=== PATIENT | female | born 1970 | race Caucasian/White ===

== ENCOUNTER 2017-03-03 06:07 | Emergency (ER) | payer OTHER ==
[~2017-03-03] VITALS: Ht 160 cm; Wt 75.1 kg
[~2017-03-03 06:07] MED LIST: BIRTH CONTROL MED
[2017-03-03] MEDS ORDERED: ZANTAC150 MG PO (06:20)
[2017-03-03] MEDS ORDERED: ALLEGRA60 MG PO (06:21)
[2017-03-03 06:30] LABS: ADD MIUA? NO; BILIRUBIN NEGATIVE; BLOOD NEGATIVE; COLOR YELLOW ((YELLOW)); GLUCOSE (STRIP) NEGATIVE; KETONES NEGATIVE; LEUKOCYTES NEGATIVE; NITRITE NEGATIVE; PROTEIN (STRIP) 30; SPECIFIC GRAVITY 1.018 (1.000-1.030); UCUL ADDED? NO; UROBILINOGEN 0.2 MG/DL (0.2-1.0)
[2017-03-03 06:40] LABS: MCH 32.6 PG (29.0-34.0); MCHC 34.7 G/DL (30.0-36.0); MCV 93.8 FL (83-99); MEAN PLAT.VOLUME 10.7 uM^3 (9.5-12.4); PLATELET COUNT 194 K/uL (156-360); RBC DIS.WIDTH-CV 12.1 % (11.8-14.6); RBC DIS.WIDTH-SD 41.9 % (39-53); RED BLOOD COUNT 4.05 M/uL (3.80-5.20); WHITE BLOOD COUNT 8.5 K/uL (4.1-10.2)
[2017-03-03 06:55] LABS: CHLORIDE 104 mEq/L (99-109); POTASSIUM 3.6 mEq/L (3.7-5.4); SODIUM 139 mEq/L (136-147)
[2017-03-03 06:58] LABS: GLUCOSE 102 mg/dL (70-99)
[2017-03-03 06:59] LABS: ANION GAP 13 MEQ/L (2-14)
[2017-03-03 07:00] LABS: TOTAL BILIRUBIN 0.4 mg/dL (0.0-1.0)
[2017-03-03 07:01] LABS: ALKALINE PHOSPHATASE 100 IU/L (3-129); GFR ESTIMATE (CALCULATED) > 59 mL/min/
[2017-03-03 07:02] LABS: UREA NITROGEN (BUN) 12 mg/dL (9-23)
[2017-03-03 07:05] LABS: LIPASE 12 U/L (1.0-51.0)
[2017-03-03 07:10] LABS: QUANTITATIVE HCG < 4.0 MIU/ML
[2017-03-03] MEDS ORDERED: ZOFRAN ODT4 MG PO (07:45)
[2017-03-03 08:39] VITALS: BP 115/76
== END 2017-03-03 08:39 | disposition home or self-care (01) ==
LOC: EME 06:07
DX: K52.9 Noninfective gastroenteritis and colitis, unspecified (principal); Z87.891 Personal history of nicotine dependence
CPT/HCPCS: 80053; 81003; 83690; 84702; 85027; 99281; 99284; J7120

== ENCOUNTER 2017-04-28 22:01 | Inpatient (IN) | payer OTHER ==
[~2017-04-28] VITALS: Ht 160 cm; Wt 77.3 kg
[~2017-04-28 22:01] MED LIST changes: +ALLEGRA60 MG PO; +ZANTAC150 MG PO; +ZOFRAN ODT4 MG PO
[2017-04-28 22:38] LABS: ADD MIUA? YES; BILIRUBIN NEGATIVE; BLOOD NEGATIVE; COLOR YELLOW ((YELLOW)); GLUCOSE (STRIP) NEGATIVE; KETONES NEGATIVE; LEUKOCYTES TRACE; NITRITE NEGATIVE; PROTEIN (STRIP) NEGATIVE; SPECIFIC GRAVITY 1.012 (1.000-1.030); UROBILINOGEN 0.2 MG/DL (0.2-1.0)
[2017-04-28 22:53] LABS: BACTERIA 1+ /HPF; EPITHELIAL CELLS 2+ /HPF; MUCUS TRACE /LPF; RED BLOOD CELLS 0-5 /HPF (0-5); UCUL ADDED? NO; WHITE BLOOD CELLS 0-5 /HPF (0-5)
[2017-04-28 22:57] LABS: HEMATOCRIT 38.2 % (36.0-46.0); MCH 32.8 PG (29.0-34.0); MCV 96.5 FL (83-99); MEAN PLAT.VOLUME 10.5 uM^3 (9.5-12.4); PLATELET COUNT 226 K/uL (156-360); RBC DIS.WIDTH-SD 42.8 % (39-53); RED BLOOD COUNT 3.96 M/uL (3.80-5.20); WHITE BLOOD COUNT 10.3 K/uL (4.1-10.2)
[2017-04-28 23:08] LABS: CHLORIDE 106 mEq/L (99-109); POTASSIUM 3.5 mEq/L (3.7-5.4); SODIUM 139 mEq/L (136-147)
[2017-04-28 23:10] LABS: GLUCOSE 118 mg/dL (70-99)
[2017-04-28 23:11] LABS: ANION GAP 13 MEQ/L (2-14)
[2017-04-28 23:12] LABS: TOTAL BILIRUBIN 0.7 mg/dL (0.0-1.0)
[2017-04-28 23:13] LABS: ALKALINE PHOSPHATASE 92 IU/L (3-129)
[2017-04-28 23:14] LABS: GFR ESTIMATE (CALCULATED) > 59 mL/min/
[2017-04-28 23:15] LABS: UREA NITROGEN (BUN) 9 mg/dL (9-23)
[2017-04-28 23:22] LABS: QUANTITATIVE HCG < 4.0 MIU/ML
[2017-04-29 00:51] LABS: LIPASE 8 U/L (1.0-51.0)
[2017-04-29] MEDS ORDERED: OMEPRAZOLE40 M1 PO (06:13)
[2017-04-29 07:45] VITALS: BP 114/56
[2017-04-29 07:58] LABS: TROP-I INTERPRETATION NEGATIVE; TROPONIN-I 0.01 ng/mL (0.0-0.30)
[2017-04-29 12:36] VITALS: BP 105/54
[2017-04-29 13:17] LABS: EOSINOPHIL (%) 0.8 % (0-5); EOSINOPHIL COUNT 0.1 K/uL (0-0.3); HEMATOCRIT 35.9 % (36.0-46.0); IMMATURE GRANULOCYTE (%) 0.3 % (0.0-0.7); INSTRUMENT ABS NEUTROPHIL CT 5.7 K/uL; LYMPHOCYTE COUNT 1.6 K/uL (1.0-2.8); MCH 32.6 PG (29.0-34.0); MCHC 33.4 G/DL (30.0-36.0); MCV 97.6 FL (83-99); MEAN PLAT.VOLUME 10.9 uM^3 (9.5-12.4); MONOCYTE (%) 7.8 % (3-12); MONOCYTE COUNT 0.6 K/uL (0-0.8); NEUTROPHIL (%) 70.7 % (45-76); NEUTROPHIL COUNT 5.7 K/uL (1.8-6.4); PLATELET COUNT 186 K/uL (156-360); RBC DIS.WIDTH-CV 12.2 % (11.8-14.6); RBC DIS.WIDTH-SD 44.3 % (39-53); RED BLOOD COUNT 3.68 M/uL (3.80-5.20)
[2017-04-29 13:41] LABS: ANION GAP 7 MEQ/L (2-14); CHLORIDE 107 MEQ/L (99-109); GFR ESTIMATE (CALCULATED) > 59 mL/min/; GLUCOSE 103 mg/dL (70-99); POTASSIUM 3.7 MEQ/L (3.7-5.4); SAMPLE HEMOLYSIS CHECK 0; SAMPLE ICTERIC CHECK 0; SAMPLE LIPEMIA CHECK 0; SODIUM 139 MEQ/L (136-147); UREA NITROGEN (BUN) 8 mg/dL (9-23)
[2017-04-29 13:52] LABS: TROP-I INTERPRETATION NEGATIVE; TROPONIN-I 0.01 ng/mL (0.0-0.30)
[2017-04-29 16:43] VITALS: BP 116/60
[2017-04-29 19:27] VITALS: BP 110/59
[2017-04-29 23:27] VITALS: BP 117/64
[2017-04-30 07:18] VITALS: BP 118/58
[2017-04-30 10:50] VITALS: BP 117/64
[2017-04-30 15:45] VITALS: BP 120/68
[2017-04-30 19:53] VITALS: BP 120/63
[2017-04-30 23:53] VITALS: BP 113/61
[2017-05-01 04:30] VITALS: BP 120/59
[2017-05-01 07:40] VITALS: BP 119/60
[2017-05-01 10:07] LABS: MCH 32.3 PG (29.0-34.0); MCHC 33.3 G/DL (30.0-36.0); MEAN PLAT.VOLUME 10.9 uM^3 (9.5-12.4); PLATELET COUNT 186 K/uL (156-360); RBC DIS.WIDTH-CV 11.9 % (11.8-14.6); RBC DIS.WIDTH-SD 42.5 % (39-53); RED BLOOD COUNT 3.71 M/uL (3.80-5.20); WHITE BLOOD COUNT 4.8 K/uL (4.1-10.2)
[2017-05-01 10:32] LABS: ANION GAP 9 MEQ/L (2-14); CHLORIDE 106 MEQ/L (99-109); GFR ESTIMATE (CALCULATED) > 59 mL/min/; GLUCOSE 96 mg/dL (70-99); POTASSIUM 3.7 MEQ/L (3.7-5.4); SAMPLE HEMOLYSIS CHECK 0; SAMPLE ICTERIC CHECK 0; SAMPLE LIPEMIA CHECK 0; SODIUM 140 MEQ/L (136-147); UREA NITROGEN (BUN) 5 mg/dL (9-23)
[2017-05-01 15:05] VITALS: BP 133/60
[2017-05-02 00:26] VITALS: BP 106/55
[2017-05-02 07:40] VITALS: BP 140/65
[2017-05-02] MEDS ORDERED: CIPRO500 MG PO (10:33)
[2017-05-02] MEDS ORDERED: FLAGYL500 MG PO (10:33)
== END 2017-05-02 12:40 | disposition home or self-care (01) | DRG 392 ==
LOC: EME 22:01 → EDOF 04-29 05:50 → ENRESERV 04-29 05:51 → 2EASTP 04-29 07:39
PROVIDERS: Hospitalist; Internal Medicine
DX: K52.9 Noninfective gastroenteritis and colitis, unspecified (principal); K56.600 Partial intestinal obstruction, unspecified as to cause; R68.83 Chills (without fever); K21.9 Gastro-esophageal reflux disease without esophagitis; M54.9 Dorsalgia, unspecified; Z82.49 Family history of ischemic heart disease and other diseases of the circulatory system; Z87.891 Personal history of nicotine dependence; Z87.74 Personal history of (corrected) congenital malformations of heart and circulatory system
CPT/HCPCS: 74020; 74176; 74177; 80048; 80053; 81003; 83690; 84484; 84702; 85025; 85027; 99281; 99285; G0378; J0696; J1885; J2270; J2405; J7030; J7050; S0030